=== PATIENT | female | born 1945 | race Caucasian/White ===

== ENCOUNTER 2019-10-17 06:32 | Observation (INO) | payer MEDICARE ==
[~2019-10-17] VITALS: Ht 170.2 cm; Wt 71.7 kg
[~2019-10-17 06:32] MED LIST: DEXAMETHASONE 4 MG/ML, 1ML IVPush ONE; DOCU100T6 PO; GUAI12009 PO; NAPR220C2 PO; OMEP20TA62 PO; [UNRECOGNIZED DRUG - OTHER] PO
[2019-10-17] MEDS ORDERED: ACETAMINOPHEN 500 MG TABLET PO STA (07:28)
[2019-10-17] MEDS ORDERED: GABAPENTIN 300 MG CAPSULE PO STA (07:28)
[2019-10-17] MEDS ORDERED: SCOPOLAMINE PATCH, 1.5MG PATCH.TD72 TD STA (07:28)
[2019-10-17] MEDS ORDERED: LACTATED RINGERS 1,000 ML IV SCH (07:31)
[2019-10-17] MEDS ORDERED: MIDAZOLAM 1 MG/ML, 2ML ONE (07:41)
[2019-10-17] MEDS ORDERED: FENTANYL PF 250 MCG/5ML ONE (07:41)
[2019-10-17] MEDS ORDERED: KETOROLAC 60 MG/2 ML ONE (07:48)
[2019-10-17] MEDS ORDERED: EPINEPHRINE 1 MG/ML, 1ML ONE (07:48)
[2019-10-17] MEDS ORDERED: VANCOMYCIN 1,000 MG ONE (07:48)
[2019-10-17] MEDS ORDERED: SODIUM CHLORIDE 0.9% 50 ML ONE (07:48)
[2019-10-17] MEDS ORDERED: ROPIvacaine/PF 0.2%, 20 ML ONE (07:48)
[2019-10-17] MEDS ORDERED: FLU VACC QS2019-20 36MOS UP/PF 0.5 ML IM-VACC ONE (08:00)
[2019-10-17 08:14] LABS: INTERNATIONAL NORMALIZED RATIO 0.94 (0.93-1.1)
[2019-10-17] MEDS ORDERED: TRANEXAMIC ACID 100 MG/ML, 10ML ONE (08:21)
[2019-10-17] MEDS ORDERED: PROMETHAZINE 25 MG/ML, 1ML IV PRN (08:30)
[2019-10-17] MEDS ORDERED: PROMETHAZINE 25 MG SUPP PR PRN (08:30)
[2019-10-17] MEDS ORDERED: ONDANSETRON ODT 8 MG PO PRN (08:30)
[2019-10-17] MEDS ORDERED: ONDANSETRON 2MG/ML, 2ML IV PRN (08:30)
[2019-10-17] MEDS ORDERED: LORazepam 2 MG/ML, 1ML IVPush PRN (08:30)
[2019-10-17] MEDS ORDERED: HYDROmorphone 2 MG/ML, 1ML IVPush PRN (08:30)
[2019-10-17] MEDS ORDERED: OXYcodone 5 MG/5 ML ORAL.SOL UDC PO PRN (08:30)
[2019-10-17] MEDS ORDERED: LIDOCAINE 2% 100MG/5ML SYRINGE ONE (08:40)
[2019-10-17] MEDS ORDERED: SCOPOLAMINE PATCH, 1.5MG PATCH.TD72 TD SCH (09:00)
[2019-10-17] MEDS ORDERED: POLYETHYLENE GLYCOL 17 GM PACKET PO PRN (09:00)
[2019-10-17] MEDS ORDERED: KETOROLAC 30 MG/1 ML IV SCH (09:00)
[2019-10-17] MEDS ORDERED: SENNA/DOCUSATE TABLET PO PRN (09:00)
[2019-10-17] MEDS ORDERED: HYDROmorphone 1 MG/ML, 1ML INJ IVPush PRN (09:00)
[2019-10-17] MEDS ORDERED: ACETAMINOPHEN 650 MG/20.3 ML UDC PO PRN (09:00)
[2019-10-17] MEDS ORDERED: ONDANSETRON 2MG/ML, 2ML IVPush PRN (09:00)
[2019-10-17] MEDS ORDERED: MAGNESIUM HYDROXIDE 8%, 30ML UDC PO PRN (09:00)
[2019-10-17] MEDS ORDERED: DIPHENHYDRAMINE 50 MG/ML, 1ML IVPush PRN (09:00)
[2019-10-17] MEDS ORDERED: ONDANSETRON 4 MG TABLET PO PRN (09:00)
[2019-10-17] MEDS ORDERED: DIPHENHYDRAMINE 25 MG CAPSULE PO PRN (09:00)
[2019-10-17] MEDS ORDERED: ALUMINUM/MAG/SIMETHICONE 30 ML UDC PO PRN (09:00)
[2019-10-17] MEDS ORDERED: hydrALAzine 20 MG/ML, 1ML ONE (09:25)
[2019-10-17] MEDS ORDERED: ONDANSETRON 2MG/ML, 2ML ONE (09:45)
[2019-10-17] MEDS ORDERED: CEFAZOLIN 1,000 MG ONE (09:45)
[2019-10-17] MEDS ORDERED: PROPOFOL 10 MG/ML, 20ML ONE (09:45)
[2019-10-17] MEDS ORDERED: DEXAMETHASONE 4 MG/ML, 1ML ONE (09:45)
[2019-10-17] MEDS ORDERED: TRANEXAMIC ACID 1,000 MG in SODIUM CHLORIDE 0.9% 100 ML IVPB ONE (10:01)
[2019-10-17] MEDS ORDERED: FENTANYL PF 100 MCG/2ML ONE ×2 (10:14→10:42)
[2019-10-17] MEDS: FENTANYL PF 100 MCG/2ML IV PRN ×4 (10:15→10:54)
[2019-10-17] MEDS ORDERED: OXYcodone 5 MG/5 ML ORAL.SOL UDC ONE (10:42)
[2019-10-17] MEDS ORDERED: KETOROLAC 30 MG/1 ML ONE (11:02)
[2019-10-17] MEDS: ACETAMINOPHEN 325 MG TABLET PO SCH ×4 (13:11→21:36)
[2019-10-17] MEDS: POTASSIUM CHLORIDE 20 MEQ in D5%-0.45% NACL 1,000 ML IV SCH ×2 (13:11→23:06)
[2019-10-17] MEDS: TAMSULOSIN 0.4 MG CAP.ER.24H PO SCH (13:11)
[2019-10-17] MEDS: DOCUSATE 100 MG CAPSULE PO SCH ×2 (13:12→21:41)
[2019-10-17 13:30] VITALS: BP 111/71
[2019-10-17] MEDS: OXYcodone IR 5MG TABLET PO PRN ×2 (15:47→20:03)
[2019-10-17] MEDS: ASPIRIN 81 MG TABLET EC PO SCH (17:32)
[2019-10-17] MEDS: CEFAZOLIN PMX 1GM/50ML 50 ML IVPB SCH (18:20)
[2019-10-17 19:35] VITALS: BP 111/58
[2019-10-17] MEDS: KETOROLAC 30 MG/1 ML IV SCH (20:04)
[2019-10-17] MEDS: GUAIFENESIN ER 600 MG TABLET PO SCH (22:15)
[2019-10-17 23:58] VITALS: BP 113/51
[2019-10-18] MEDS: OXYcodone IR 5MG TABLET PO PRN ×4 (00:04→14:08)
[2019-10-18] MEDS: ACETAMINOPHEN 325 MG TABLET PO SCH ×4 (02:22→14:08)
[2019-10-18] MEDS: CEFAZOLIN PMX 1GM/50ML 50 ML IVPB SCH (02:22)
[2019-10-18 04:06] VITALS: BP 103/62
[2019-10-18] MEDS: KETOROLAC 30 MG/1 ML IV SCH ×2 (04:19→11:59)
[2019-10-18] MEDS ORDERED: OMEPRAZOLE 20 MG CAPSULE.DR PO SCH (06:00)
[2019-10-18] MEDS ORDERED: DEXAMETHASONE 4 MG/ML, 1ML IVPush ONE (06:00)
[2019-10-18 08:10] VITALS: BP 115/72
[2019-10-18] MEDS: TAMSULOSIN 0.4 MG CAP.ER.24H PO SCH (09:34)
[2019-10-18] MEDS: GUAIFENESIN ER 600 MG TABLET PO SCH (09:34)
[2019-10-18] MEDS: ASPIRIN 81 MG TABLET EC PO SCH (09:34)
[2019-10-18] MEDS: DOCUSATE 100 MG CAPSULE PO SCH (09:34)
[2019-10-18] MEDS ORDERED: ASPI81TA45 PO (10:07)
[2019-10-18 13:45] VITALS: BP 101/61
== END 2019-10-18 15:35 | disposition home or self-care (01) ==
LOC: OUT 06:32 → ORIP 08:42 → 4NE 11:37 → DCLOUNGE 10-18 15:18
PROVIDERS: ADMIT Orthopaedic Surgery; ATTEND Orthopaedic Surgery
DX: M17.11 Unilateral primary osteoarthritis, right knee (principal); Z79.899 Other long term (current) drug therapy; G89.29 Other chronic pain; Z68.24 Body mass index [BMI] 24.0-24.9, adult; Z88.8 Allergy status to other drugs, medicaments and biological substances; Z90.81 Acquired absence of spleen; Z79.82 Long term (current) use of aspirin
CPT/HCPCS: 27447; 36415; 73560; 83036; 85014; 85018; 85610; 85730; 87081; 87806; 96365; 96366; 96375; 96376; 97110; 97161; 97165; C1713; C1776; G0378; J0171; J0360; J0690; J1100; J1885; J2250; J2405; J2704; J2795; J3010; J3480; J7120; J3370; G0475